=== PATIENT | female | born 1950 | race Caucasian/White ===

== ENCOUNTER 2023-06-25 10:54 | Outpatient (CLI) | payer MEDICARE, BC | END 2023-06-25 23:59 | disposition home or self-care (01) | LOC: RAD 10:54 | PROVIDERS: ATTEND Family Medicine | DX: L03.115 Cellulitis of right lower limb (principal); L98.499 Non-pressure chronic ulcer of skin of other sites with unspecified severity; M79.89 Other specified soft tissue disorders | CPT/HCPCS: 76881 ==